=== PATIENT | male | born 1985 | race Caucasian/White ===

== ENCOUNTER 2018-03-29 13:00 | Emergency (ER) | payer BC, OTHER ==
[2018-03-29 13:59] VITALS: BP 135/81; PULSE 77; TEMP 98.3; BMI 25.8
--- NOTE | 2018-03-29 14:49 | PDOC ---
Attending Attestation - Resident Resident Name: Sa Mildredira - ED Attending Attestation I have performed the following: I have examined & evaluated the patient, The case was reviewed & discussed with the resident, I agree w/resident's findings & plan, Exceptions are as noted - HPI HPI: 03/29/18 19:19 Patient is a 32 year old male with no significant past medical history who presents to the ED with complaints of right sided chest pain that began this afternoon. Patient reports experiencing right sided chest pain as well as associated dizziness after standing up, left arm numbness and intermittent lethargy, prompting him to come into the ED for further evaluation. He reports going to [place] this past week for a bachelor alliance party and consumed alcohol. Denies shortness of breath, nausea, vomiting. Denies contact with sick individuals, out of state travelling. Denies any other symptoms. 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 No smoking. Current alcohol use. No illicit drugs. Surgical history: None PMD: None - Physicial Exam PE: general no acute distress card rrr, no mrg pulmL cta b/l - Medical Decision Making 03/29/18 16:30 32y M no pmhx presents with R sided crampy chest pain and left arm numbness and lightheadedness for 30 seconds when he stood up no family hx of CAD no meds exam unremarkble Heart Score/ECG Review - ECG Impressions Comment:: 03/29/18 19:48 ekg sinus rhthm w/ sinus arrythmia rate of 76 LAD incomplete RBBB no st change suggestive of acute ischemia
--- NOTE | 2018-03-29 15:55 | PDOC ---
History of Present Illness - General Chief Complaint: Chest Pain Stated Complaint: CHEST PAIN Time Seen by Provider: 03/29/18 14:05 History Source: Patient Exam Limitations: No Limitations - History of Present Illness Initial Comments: 03/29/18 15:52 Pt is a previously healthy 32yo m presenting to ED with complaints of R sided chest pain that started after he ate lunch. Pt said the pain was R sided, felt crampy, did not radiate, associated with dizziness upon standing up, L arm numbness. He took two 81mg ASA and came to the ED. Pt is not having chest pain now, but still has "a funny feeling" in his L arm and feels tired. He denies fever, chills, cough, congestion, SOB, abdominal pain, n/v/d. He recently traveled to [place] for a [employer] [place]. Pt works for the [employer]. No history of [place] in the family. PCP: [facility] PMH: none PSH: none Meds: none Allergies: nkda Social: denies tobacco use. Past History - Past Medical History Allergies/Adverse Reactions: Allergies Allergy/AdvReac Type Severity Reaction Status Date / Time No Known Allergies Allergy Verified 03/29/18 13:53 Home Medications: Ambulatory Orders NK [No Known Home Medication] 03/29/18 COPD: No - Suicide/Smoking/Psychosocial Hx Smoking History: Never smoked Hx Alcohol Use: No Drug/Substance Use Hx: No Substance Use Type: None Review of Systems - Review of Systems Constitutional: Yes: Other (fatigued, body aches). No: Chills, Fever, Weakness HEENTM: No: Recent change in vision Respiratory: No: Cough, Shortness of Breath Cardiac (ROS): Yes: Chest Pain, Lightheadedness. No: Palpitations, Syncope ABD/GI: No: Nausea, Vomiting *Physical Exam - Vital Signs Last Vital Signs Temp Pulse Resp BP Pulse Ox 98.3 F 77 16 135/81 98 03/29/18 13:45 03/29/18 13:45 03/29/18 13:45 03/29/18 13:45 03/29/18 13:45 Heart Score/ECG Review - History History: Moderately suspicious - Electrocardiogram EKG: Normal - Age Age: </= 45 - Risk Factors Based on the list above the patient has:: No risk factors known - Troponin Troponin: </= normal limit - Score Heart Score - Total: 1 ED Treatment Course - LABORATORY CBC & Chemistry Diagram: 03/29/18 15:31 03/29/18 15:31 Medical Decision Making - Medical Decision Making 03/29/18 19:49 previously healthy 32yo m presenting to ED with R chest pain associated with lightheadedness, L arm numbness and body aches. Chest pain lasted 30s and is not actively having cp in ed. Vitals: wnl PE: benign trop, cbc, cmp ordered. CXR ordred, EKG done in triage. all labs wnl. EKG showed sinus arrhythmia without acute changes. Compared to EKG done in December, ekg does not show acute changes other than arrhythmia. Pt has had arrhythmia in the past. Pt gets ekg done every few months because he works for [employer]. Denies family history of cardiac issues. Pt refusing cxr. Low suspicion for pe, pna, ptx given benign exam and pt being afebrile and not having other pulmonary symptoms. Pt hemodynamically stable, asymtpomatic, has good pcp follow up. can be safely dc home. given strict return precautions. pt agreed to plan. *DC/Admit/Observation/Transfer Diagnosis at time of Disposition: Chest pain Qualifiers: Chest pain type: unspecified Qualified Code(s): R07.9 - Chest pain, unspecified - Discharge Dispostion Disposition: HOME Condition at time of disposition: Good Decision to Admit order: No - Referrals - Patient Instructions Printed Discharge Instructions: DI for Chest Pain Additional Instructions: You were seen here today for evaluation of chest pain. All of your tests were normal. Please continue to see your doctor for monitoring of your health. Come back to the emergency room if: chest pain gets worse, you feel short of breath, you feel like you are about to pass out, or if any new concerning symptom develops. thank you - Post Discharge Activity
[2018-03-29 16:04] LABS: ALBUMIN 4.2 g/dl (3.4-5.0); ALK PHOS 61 U/L (45-117); ANION GAP 6 MMOL/L (8-16); BILIRUBIN,TOTAL 0.5 mg/dL (0.2-1); BLOOD UREA NITROGEN 19 mg/dL (7-18); CALCIUM 9.7 mg/dL (8.5-10.1); CHLORIDE 104 mmol/L (98-107); CO2 29 mmol/L (21-32); GLUCOSE,RANDOM 95 mg/dL (74-106); POTASSIUM 4.5 mmol/L (3.5-5.1); SGOT/AST 27 U/L (15-37); SGPT/ALT 36 U/L (13-61); SODIUM 139 mmol/L (136-145); TOT PROT 7.5 g/dl (6.4-8.2)
[2018-03-29 16:08] LABS: BASO % 0.8 % (0-2.0); HEMATOCRIT 41.5 % (35.4-49); HEMOGLOBIN 14.3 GM/dL (11.7-16.9); LYMPH % 25.9 % (8-40); MCH 29.4 pg (25.7-33.7); MCHC 34.5 g/dl (32.0-35.9); MEAN CELL VOLUME 85.1 fl (80-96); MONO % 8.9 % (3.8-10.2); NEUT % 62.4 % (42.8-82.8); PLATELET COUNT 351 K/MM3 (134-434); RBC 4.88 M/mm3 (4.00-5.60); RDW 12.2 % (11.9-15.9); WHITE BLOOD COUNT 6.3 K/mm3 (4.0-10.0)
--- NOTE | 2018-03-29 17:02 | EKG ---
Test Reason : Blood Pressure : / mmHG Vent. Rate : 076 BPM Atrial Rate : 076 BPM P-R Int : 152 ms QRS Dur : 110 ms QT Int : 374 ms P-R-T Axes : 058 -30 037 degrees QTc Int : 420 ms SINUS RHYTHM WITH MARKED SINUS ARRHYTHMIA LEFT AXIS DEVIATION INCOMPLETE RIGHT BUNDLE BRANCH BLOCK ABNORMAL ECG WHEN COMPARED WITH ECG OF 04-JAN-2018 11:20, VENT. RATE HAS INCREASED BY 25 BPM QT HAS LENGTHENED Confirmed by MD MARTINA, ARMINDA ([id number]) on 03/29/2018 5:02:31 PM Referred By: Confirmed By:ARMINDA MACK MD
== END 2018-03-29 17:09 | disposition home or self-care (01) ==
LOC: JER 13:00
DX: R07.9 Chest pain, unspecified (principal)
CPT/HCPCS: 36415; 80053; 84484; 85025; 93005; 93010; 99282-25

== ENCOUNTER 2020-02-04 19:01 | Emergency (ER) | payer OTHER ==
[2020-02-04 19:20] VITALS: BP 107/61; PULSE 82; TEMP 98.2; BMI 26.6
[2020-02-04] MEDS ORDERED: KETOROLAC TROMETHAMINE 30 MG/1 ML VIAL IM ONE (19:31)
[2020-02-04] MEDS ORDERED: CYCLOBENZAPRINE HCL 10 MG TABLET (FP) PO ONE (19:31)
[2020-02-04] MEDS ORDERED: KETOROLAC TROMETHAMINE 30 MG/1 ML VIAL ONE (19:33)
[2020-02-04] MEDS ORDERED: CYCLOBENZAPRINE HCL 10 MG TABLET (FP) ONE (19:33)
--- NOTE | 2020-02-04 19:50 | PDOC ---
History of Present Illness - General Chief Complaint: Back Pain Stated Complaint: BACK PAIN History Source: Patient Exam Limitations: No Limitations - History of Present Illness Initial Comments: 02/04/20 19:32 Patient is a 34-year-old with no past medical history here with complaints of lower back pain since about 5:30 PM. 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 States this tightness is now 6/10, especially with sitting. He denies any bowel or bladder incontinence, saddle anesthesia. S tates he had some similar injury in the past and was put on rest with anti- inflammatories and due to recover. PMD: Dr. Hurt PMHX: neg PSOCHX: neg cig, occ etoh ALL: NKDA GENERAL/CONSTITUTIONAL: [No fever or chills. No weakness. No weight change.] HEAD, EYES, EARS, NOSE AND THROAT: [No change in vision. No ear pain or discharge. No sore throat.] CARDIOVASCULAR: [No chest pain or shortness of breath.] RESPIRATORY: [No cough, wheezing, or hemoptysis.] GASTROINTESTINAL: [No nausea, vomiting, diarrhea or constipation. No rectal bleeding.] GENITOURINARY: [No dysuria, frequency, or change in urination.] MUSCULOSKELETAL: [No joint or muscle swelling or pain. No neck (+) back pain.] SKIN AND BREASTS: [No rash or easy bruising.] NEUROLOGIC: [No headache, vertigo, loss of consciousness, or loss of sensation.] PSYCHIATRIC: [No depression or anxiety.] ENDOCRINE: [No increased thirst. No abnormal weight change.] HEMATOLOGIC/LYMPHATIC: [No anemia, easy bleeding, or history of blood clots.] ALLERGIC/IMMUNOLOGIC: [No hives or skin allergy. No latex allergy.] GENERAL: [The patient is awake, alert, and fully oriented, in no acute distress.] HEAD: [Normal with no signs of trauma.] EYES: [Pupils equal, round and reactive to light, extraocular movements intact, sclera anicteric, conjunctiva clear.] ENT: [Ears normal, nares patent, oropharynx clear without exudates. Moist mucous membranes.] NECK: [Normal range of motion, supple without lymphadenopathy, JVD, or masses.] LUNGS: [Breath sounds equal, clear to auscultation bilaterally. No wheezes, and no crackles.] HEART: [Regular rate and rhythm, normal S1 and S2 without murmur, rub.] ABDOMEN: [Soft, nontender, normoactive bowel sounds. No guarding, no rebound. No masses.] BACK: nontender midline, mild lumber paraspinal tenderness EXTREMITIES: [Normal range of motion, no edema. No clubbing or cyanosis. No cords, erythema, or tenderness.] NEUROLOGICAL: [Cranial nerves II through XII grossly intact. 5/5 strength b/l, (+) sensory intact, straight leg raise to 35 degrees, Normal speech, normal gait.] PSYCH: [Normal mood, normal affect.] SKIN: [Warm, Dry, normal turgor, no rashes or lesions noted.] Past History - Medical History Allergies/Adverse Reactions: Allergies Allergy/AdvReac Type Severity Reaction Status Date / Time No Known Allergies Allergy Verified 03/29/18 13:53 Home Medications: Ambulatory Orders Cyclobenzaprine HCl [Flexeril -] 10 mg PO TID #21 tablet 02/04/20 Ibuprofen [Motrin -] 600 mg PO QID #28 tablet 02/04/20 COPD: No - Psycho-Social/Smoking History Smoking History: Never smoked - Substance Abuse Hx (Audit-C & DAST Scrn) How often the patient has a drink containing alcohol: Monthly or less Number of drinks the patient has on a typical day: 1 or 2 How often the patient has six or more drinks on one occasion: Never Score: In Men: 4 or > Positive; In Women: 3 or > Positive: 1 Screen Result (Pos requires Nsg. Audit-10AR): Negative In the last yr the pt used illegal drug/Rx for NonMed reason: No Score: Yes response is considered Positive: 0 Screen Result (Positive result requires Nsg. DAST-10): Negative *Physical Exam - Vital Signs Last Vital Signs Temp Pulse Resp BP Pulse Ox 98.2 F 82 19 107/61 98 02/04/20 19:17 02/04/20 19:17 02/04/20 19:17 02/04/20 19:17 02/04/20 19:17 Medical Decision Making - Medical Decision Making 02/04/20 19:32 Patient is a 34-year-old with no past medical history here with complaints of lower back pain since about 5:30 PM. 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 States this tightness is now 6/10, especially with sitting. He denies any bowel or bladder incontinence, saddle anesthesia. States he had some similar injury in the past and was put on rest with anti- inflammatories and due to recover. Low back strain toradol and flexeril reassess I discussed the physical exam findings, ancillary test results and final diagnoses with the patient. I answered all of the patient's questions. The patient was satisfied with the care received and felt comfortable with the discharge plan and treatment plan. The Patient agrees to follow up with the primary care physician within 24-72 hours. Discharge - Discharge Information Problems reviewed: Yes Clinical Impression/Diagnosis: Low back strain Qualifiers: Encounter type: initial encounter Qualified Code(s): S39.012A - Strain of muscle, fascia and tendon of lower back, initial encounter Condition: Stable Disposition: HOME - Additional Discharge Information Prescriptions: Cyclobenzaprine HCl [Flexeril -] 10 mg PO TID #21 tablet Ibuprofen [Motrin -] 600 mg PO QID #28 tablet - Follow up/Referral Referrals: Iraj Hurt MD [Primary Care Provider] - - Patient Discharge Instructions Patient Printed Discharge Instructions: DI for Back Strain or Sprain Additional Instructions: Your Discharge Instructions: You must call primary care physician within 24 hours to arrange follow-up. Return to the Emergency Department with any new, persistent or worsening symptoms, for fever, chills, SOB, dizziness or any other concerning changes that may occur. - Post Discharge Activity Work/Back to School Note: Back to Work
== END 2020-02-04 20:20 | disposition home or self-care (01) ==
LOC: JERFT 19:01 → JER 19:01 → JERFT 20:20
PROC: 3E0233Z Introduction of Anti-inflammatory into Muscle, Percutaneous Approach (ICD-10-PCS; principal; 2020-02-04)
DX: S39.012A Strain of muscle, fascia and tendon of lower back, initial encounter (principal)
CPT/HCPCS: 99284-25

== ENCOUNTER 2022-10-09 04:20 | Day surgery (SDC) | payer OTHER ==
[2022-10-08 10:53] VITALS: BMI 28.1
[2022-10-09] MEDS ORDERED: LIDOCAINE HCL/PF 1% SDV 5ML VIAL ONE (07:35)
[2022-10-09] MEDS ORDERED: DEXAMETHASONE SOD PHOSPHATE 4 MG/1 ML VIAL ONE (07:35)
[2022-10-09] MEDS ORDERED: DEXAMETHASONE SOD PHOSPHATE 10 MG/1 ML VIAL ONE ×2 (07:35→13:25)
[2022-10-09 13:44] VITALS: PULSE 71; RESP 18
[2022-10-09] MEDS ORDERED: LIDOCAINE HCL 1% PRESERVATIVE FREE - 30ML VIAL IJ ONE ×2 (14:27)
[2022-10-09] MEDS ORDERED: DEXAMETHASONE SOD PHOSPHATE 10 MG/1 ML VIAL IVPUSH ONE (14:27)
[2022-10-09] MEDS ORDERED: IOHEXOL 180 MG/1 ML ML IJ ONE (14:28)
[2022-10-09 15:09] VITALS: BP 95/62; TEMP 97.5
== END 2022-10-09 15:24 | disposition home or self-care (01) ==
LOC: JASU-SURG 04:20
PROVIDERS: ATTEND Pain Medicine Pain Medicine
PROC: 3E0R3BZ Introduction of Anesthetic Agent into Spinal Canal, Percutaneous Approach (ICD-10-PCS; 2022-10-09)
PROC: 3E0R33Z Introduction of Anti-inflammatory into Spinal Canal, Percutaneous Approach (ICD-10-PCS; principal; 2022-10-09 15:00)
DX: M48.061 Spinal stenosis, lumbar region without neurogenic claudication (principal); M54.16 Radiculopathy, lumbar region
CPT/HCPCS: 76000-TC-FY; J1100